=== PATIENT | female | born 1945 | race Caucasian/White ===

== ENCOUNTER 2020-04-29 19:37 | Outpatient (CLI) | payer MEDICARE, OTHER | END 2020-04-29 19:38 | disposition home or self-care (01) | LOC: COV 19:37 | PROVIDERS: ATTEND Family Medicine | DX: Z20.828 Contact with and (suspected) exposure to other viral communicable diseases (principal) ==

== ENCOUNTER 2023-03-13 08:00 | Outpatient (CLI) | payer MEDICARE, OTHER ==
--- NOTE | 2023-03-14 09:59 | XRAY Report ---
PROCEDURE: Knee 3 View RT INDICATIONS: SPRAIN OF RIGHT KNEE TECHNIQUE: 3 views of the right knee(s) were acquired. COMPARISON: None. FINDINGS: Bones: No fractures or dislocations. No suspicious bony lesions. Chondrocalcinosis. Early osteoph ytes. Moderate medial compartment joint space loss. Soft tissues: No knee joint effusion. No suspicious soft tissue calcifications or masses. IMPRESSION: CPPD arthropathy. No acute bony abnormality. Reviewed by: Polo Richardson MD on 03/14/2023 9:57 AM PDT Approved by: Polo Richardson MD on 03/14/2023 9:57 AM PDT Station ID: [id number]
== END 2023-03-13 23:59 | disposition home or self-care (01) ==
LOC: DI.S 08:00
PROVIDERS: ATTEND Emergency Medicine
DX: S83.91XA Sprain of unspecified site of right knee, initial encounter (principal); M11.861 Other specified crystal arthropathies, right knee